=== PATIENT | male | born 1985 | race Two or more races ===

== ENCOUNTER 2024-12-07 22:00 | Inpatient (IN) | payer OTHER ==
[~2024-12-07] VITALS: Ht 149.9 cm; Wt 60.0 kg
[~2024-12-07 22:00] MED LIST: LIDOCAINE/PF 2% 5 ML VIAL ONE; PROPOFOL 1% 20 ML VIAL IVP ONE
[2024-12-07 23:44] LABS: CALCIUM, TOTAL 8.9 mg/dL (8.8-10.5); CREATININE 0.61 mg/dL (0.60-1.30); GLOMERULAR FILTR. RATE CALC > 60 mL/min (>60); GLUCOSE,RANDOM 105 mg/dL (70-110); SODIUM SERUM 134 mmol/L (136-145); UREA NITROGEN, BLOOD 9 mg/dL (7-18)
[2024-12-07 23:47] LABS: ASPARTATE AMINOTRANSFERASE 100 U/L (15-37); TOTAL PROTEIN, SERUM 8.1 g/dL (6.4-8.2)
[2024-12-07 23:50] LABS: ALCOHOL, BLOOD (SERUM) < 3 mg/dL (0-10)
[2024-12-08] VITALS (13 sets, daily range): BP systolic 118–164; BP diastolic 64–84; PULSE 60–80; RESP 16–19; TEMP 98.1–99.1; O2SAT 96–100
[2024-12-08 00:04] LABS: RED BLOOD CELL COUNT(AUTO) 3.59 MIL/uL (4.50-5.90); RED CELL DISTRIBUTION WIDTH 19.2 % (11.5-14.5); WHITE BLOOD COUNT (AUTO) 3.3 K/uL (4.5-11.0)
[2024-12-08 00:21] LABS: AMPHET/METH SCREEN,URINE NEGATIVE (NEGATIVE); BARBITURATE SCREEN, URINE NEGATIVE (NEGATIVE); CANNABINOID SCREEN,URINE NEGATIVE (NEGATIVE); COCAINE SCREEN,URINE NEGATIVE (NEGATIVE); METHADONE SCREEN, URINE NEGATIVE (NEGATIVE)
[2024-12-08 00:24] LABS: ALCOHOL, URINE DRUG SCREEN NEGATIVE (NEGATIVE)
[2024-12-08 00:29] LABS: APPEARANCE,URINE CLEAR (CLEAR); GLUCOSE, URINE (UA) NEGATIVE (NEGATIVE); LEUKOCYTE ESTERASE ,URINE NEGATIVE (NEGATIVE); NITRATE,URINE NEGATIVE (NEGATIVE); OCCULT BLOOD,URINE NEGATIVE (NEGATIVE); PH,URINE DRUG SCREEN 8.0 (5.0-8.0); SPECIFIC GRAVITIY, URINE 1.028 (1.003-1.030)
[2024-12-08] MEDS ORDERED: ONDANSETRON HCL 4 MG/2 ML VIAL IVP PRN (00:30)
[2024-12-08] MEDS ORDERED: ACETAMINOPHEN 325 MG TABLET PO PRN (00:30)
[2024-12-08] MEDS ORDERED: SODIUM CHLORIDE 0.9% 100 ML ONE (00:31)
[2024-12-08] MEDS ORDERED: IOHEXOL 350 MG/ML 100 ML VIAL ONE (00:31)
[2024-12-08 00:45] LABS: RBC MORPHOLOGY COMMENT ABNORMAL RBC MORPH
[2024-12-08 00:47] LABS: PLATELET COUNT (AUTO) 34 K/uL (150-450)
[2024-12-08 00:48] LABS: PATHOLOGY REVIEW, DIFF YES
[2024-12-08] MEDS: PANTOPRAZOLE SODIUM 80 MG in SODIUM CHLORIDE 0.9% 100 ML IV SCH ×2 (01:55→09:28)
[2024-12-08] MEDS: LORazepam 2 MG/ML VIAL IVP ONE (02:00)
[2024-12-08] MEDS: PANTOPRAZOLE SODIUM 40 MG/VIAL IVP ONE (02:00)
[2024-12-08 02:42] LABS: % IRON SATURATION 4.5 % (30-44); IRON, SERUM 25.0 mcg/dL (50-175)
[2024-12-08] MEDS: DOCUSATE SODIUM 100 MG CAPSULE PO SCH (08:22)
[2024-12-08 08:56] LABS: PLATELET COUNT (AUTO) 39 K/uL (150-450); RED BLOOD CELL COUNT(AUTO) 3.99 MIL/uL (4.50-5.90); RED CELL DISTRIBUTION WIDTH 21.6 % (11.5-14.5); WHITE BLOOD COUNT (AUTO) 3.5 K/uL (4.5-11.0)
[2024-12-08 09:09] LABS: RBC MORPHOLOGY COMMENT ABNORMAL RBC MORPH
[2024-12-08] MEDS: MAGNESIUM SULFATE 2 GM, MVI, ADULT NO.1 WITH VIT K 10 ML, THIAMINE 100 MG, FOLIC ACID 1... IV ONE (09:29)
[2024-12-08] MEDS ORDERED: SODIUM CHLORIDE 0.9% 1,000 ML ONE (13:47)
[2024-12-08 14:04] LABS: CALCIUM, TOTAL 7.6 mg/dL (8.8-10.5); CREATININE 0.50 mg/dL (0.60-1.30); GLOMERULAR FILTR. RATE CALC > 60 mL/min (>60); GLUCOSE,RANDOM 96 mg/dL (70-110); SODIUM SERUM 138 mmol/L (136-145); UREA NITROGEN, BLOOD 6 mg/dL (7-18)
[2024-12-08] MEDS: 1: MAGNESIUM SULFATE 2 GM, MVI, ADULT NO.1 WITH VIT K 10 ML, THIAMINE 100 MG, FOLIC ACID IV SCH (14:08)
[2024-12-08] MEDS ORDERED: FentaNYL CITRATE PF 100 MCG/2 ML VIAL IVP PRN (15:00)
[2024-12-08] MEDS ORDERED: MEPERIDINE-PF 25 MG/ML VIAL IVP PRN (15:00)
[2024-12-08] MEDS ORDERED: LORazepam 2 MG/ML VIAL IVP PRN (16:00)
[2024-12-08] MEDS ORDERED: SODIUM CHLORIDE 0.9% 250 ML IV ONE (16:00)
[2024-12-08] MEDS: POTASSIUM CHL 10 MEQ/WATER 50 ML IV SCH (16:11)
[2024-12-08] MEDS: SODIUM CHLORIDE 0.9% 1,000 ML IV ONE (16:11)
[2024-12-09 07:09] LABS: PLATELET COUNT (AUTO) 41 K/uL (150-450); RED BLOOD CELL COUNT(AUTO) 3.74 MIL/uL (4.50-5.90); RED CELL DISTRIBUTION WIDTH 21.6 % (11.5-14.5); WHITE BLOOD COUNT (AUTO) 3.4 K/uL (4.5-11.0)
[2024-12-09 07:24] LABS: CALCIUM, TOTAL 7.7 mg/dL (8.8-10.5); CREATININE 0.45 mg/dL (0.60-1.30); GLOMERULAR FILTR. RATE CALC > 60 mL/min (>60); GLUCOSE,RANDOM 91 mg/dL (70-110); SODIUM SERUM 138 mmol/L (136-145); UREA NITROGEN, BLOOD 5 mg/dL (7-18)
[2024-12-09] MEDS ORDERED: HEPARIN SODIUM,PORCINE 5,000 UNITS/ML VIAL SQ SCH (08:00)
[2024-12-09 08:14] LABS: RBC MORPHOLOGY COMMENT ABNORMAL RBC MORPH
[2024-12-09] MEDS: OXYGEN THERAPY IH SCH (08:15)
[2024-12-09 08:16] VITALS: BP 117/64; PULSE 77; RESP 18; TEMP 99; O2SAT 100
[2024-12-09] MEDS ORDERED: PROP10TA73 PO (10:49)
[2024-12-09] MEDS ORDERED: PANT-31 PO (10:49)
[2024-12-09] MEDS ORDERED: FERR324T23 PO (11:57)
[2024-12-09] MEDS: PANTOPRAZOLE SODIUM 40 MG DR TABLET PO SCH (12:39)
[2024-12-09 20:25] VITALS: BP 113/66; PULSE 75; RESP 18; TEMP 99; O2SAT 99
[2024-12-10 04:06] VITALS: BP 122/72; PULSE 71; RESP 20; TEMP 98.4; O2SAT 100
[2024-12-10 08:38] VITALS: BP 131/77; PULSE 70; RESP 20; TEMP 98.8; O2SAT 100
== END 2024-12-10 09:15 | DRG 391 ==
LOC: EMS 22:04 → EDH 23:49 → 5S 12-08 05:15 → 6S 12-08 22:41
PROVIDERS: ADMIT Internal Medicine; ATTEND Internal Medicine
PROC: 30233N1 Transfusion of Nonautologous Red Blood Cells into Peripheral Vein, Percutaneous Approach (ICD-10-PCS; 2024-12-08)
PROC: 06L38CZ Occlusion of Esophageal Vein with Extraluminal Device, Via Natural or Artificial Opening Endoscopic (ICD-10-PCS; principal; 2024-12-08 15:00)
DX: K29.20 Alcoholic gastritis without bleeding (principal); I85.11 Secondary esophageal varices with bleeding; D61.818 Other pancytopenia; E87.1 Hypo-osmolality and hyponatremia; D62 Acute posthemorrhagic anemia; K76.6 Portal hypertension; F10.139 Alcohol abuse with withdrawal, unspecified; Y90.0 Blood alcohol level of less than 20 mg/100 ml; K31.89 Other diseases of stomach and duodenum; K74.60 Unspecified cirrhosis of liver; Y90.9 Presence of alcohol in blood, level not specified; E87.6 Hypokalemia; E86.0 Dehydration
CPT/HCPCS: 74177; 80048; 80076; 80307; 81003; 82271; 83540; 83550; 83690; 83735; 85025; 85045; 85610; 85730; 86850; 86900; 86901; 86923; 93005; 99291; G0378; G0480; J2060; J2470; J2704; J3411; J3475; J3480; J3490; J7030; J7050; P9016